=== PATIENT | male | born 1965 | race Caucasian/White ===

== ENCOUNTER 2022-10-20 09:00 | Outpatient (OUT) | payer OTHER, SELFPAY ==
--- NOTE | 2022-10-20 09:31 | P.HP_ITS ---
Consult Note: HPI Data of Consult Patient: known to practice within the last 3 years Consult date: 10/20/22 Requesting Physician: ALBINA MAYER NP Primary Care Provider: Corry Fan MD Family Provider: DMNANDINI Consult Narrative Reason for consult: right hip, back pain Narrative: Fadi is here for f/u of right LCIH NB done 09/26/22. He received 100% relief of pain and increased fx for several hours after procedure. He would like to proceed with RFA of same area. No new sensorimotor or bowel or bladder issues. Pain in right SI area. He does receive intensive care ambulance paramedic. He has failed conservative management. No medication SE. We discussed RFA procedure in detail and he would like to proceed. cc:: CC: ALBINA MAYER NP Review of Systems ROS Status of ROS 10 or more systems reviewed and unremarkable except as noted in history and below Musculoskeletal Reports: back pain Meds Home Medications and Allergies Home Medications Medication Instructions Recorded Confirmed Type alprazolam 1 mg tablet (Xanax) 1 mg PO BID 10/20/22 10/20/22 History aspirin 81 mg tablet,delayed 81 mg PO QDAY 10/20/22 10/20/22 History release (Adult Low Dose Aspirin) cyclobenzaprine 10 mg tablet 10 mg PO QPM 10/20/22 10/20/22 History diclofenac sodium 75 mg 75 mg PO BID 10/20/22 10/20/22 History tablet,delayed release montelukast 10 mg tablet 10 mg PO QDAY 10/20/22 10/20/22 History rosuvastatin 5 mg tablet 5 mg PO QDAY 10/20/22 10/20/22 History tadalafil 20 mg tablet 20 mg PO QDAY 10/20/22 10/20/22 History Allergies Allergy/AdvReac Type Severity Reaction Status Date / Time No Known Drug Allergies Allergy Verified 10/20/22 09:12 Exam Constitutional: Common normals: no apparent distress, average body habitus, oriented x3, no limitations, healthy appearing, alert and well nourished General appearance: cooperative, comfortable and well developed Orientation/consciousness: Yes awake, Yes oriented to person, Yes oriented to place and Yes oriented to time Respiratory: Common normals: normal respiratory effort, no retractions and no use of accessory muscles Effort & inspection: able to speak in complete sentences Back & Pelvis: Lumbar spine/lower back: normal to inspection, lumbar ROM normal, pain with ROM, paraspinal muscle tenderness and straight leg raise negative bilaterally Sacroiliac joints: SI joint(s) abnormal SI joint details: tender to palpation and pain elicited by passive hyperextension of lower extremity Extremity: Common normals: normal to inspection, full ROM, normal capillary refill and no pedal edema Other: muscle strength 5/5 bilat LE with intact sensation positive gaenslens, positive janna right, positive thigh thrust Skin: Common normals: no rashes or lesions noted, no wounds, skin turgor normal, no jaundice, no petechiae and no mottling Assessment and Plan Assessment and Plan (1) Neuritis: (2) Muscle spasm: Plan schedule for thermal RFA right LCIH without sedation
== END 2022-10-20 09:01 ==
PROVIDERS: PCP Anesthesiology; Visit Provider Nurse Practitioner
DX: M79.2 Neuralgia and neuritis, unspecified (principal); M62.838 Other muscle spasm
CPT/HCPCS: G0463

== ENCOUNTER 2022-12-05 07:23 | Day surgery (SDC) | payer OTHER, SELFPAY ==
[2022-12-05 08:13] VITALS: BP 117/77; PULSE 57; RESP 16; TEMP 36.9; O2SAT 100
[2022-12-05 08:47] VITALS: BP 145/67; PULSE 64; RESP 20; O2SAT 97
[2022-12-05] MEDS: BUPIVACAINE HCL 0.25% PF 25 MG/10 ML VIAL 4 ML INJ (08:51)
[2022-12-05] MEDS: LIDOCAINE HCL 2% 400 MG/20 ML MDV 15 ML INJ (08:51)
[2022-12-05] MEDS: METHYLPREDNISOLONE ACETATE 40 MG/ML VIAL INJ (08:52)
[2022-12-05 08:53] VITALS: BP 142/76; PULSE 63; RESP 20; O2SAT 98
--- NOTE | 2022-12-05 10:04 | W.PM.PROCNOT ---
Date of procedure: 12/05/22 Pre-op diagnosis: Right LCIH Neuritis Post-op diagnosis: same Procedure: Right Lateral cutaneous iliohypogastric nerve Radiofrequency ablation Under fluoroscopic guidance Rhizotomy was created using radio frequency ablation at 80?C for 90 seconds 1 to 2 lesions created at each site. Post lesioning injection of 2 mL each of 0.25% Marcaine and 2% lidocaine with Depo-Medrol 40mg. 0.5 to 1 mL injected at each site Anesthesia local 2% lidocaine Timeout process compliant After informed consent obtained. Patient brought to the procedure room placed in the prone position skin overlying the area was prepped and draped in a sterile fashion using betadine. 25 gauge needle was used to create a skin wheal over each of the targeted areas utilizing 2% lidocaine. A rhizotomy needle with a 10 mm active tip was inserted over each of the anesthetized areas and directed towards four different areas in the distribution of the lateral cutaneous branches of the iliohypogastric nerve, accomplished under fluoroscopic guidance. After encountering the same we had positive sensory stimulation, negative motor stimulation was noted. lesions were then created. Post lesioning, steroid solution was injected needles removed. Patient was transferred to recovery room in stable condition to be discharged home after meeting criteria. Surgeon: Archana Beckwith
== END 2022-12-05 09:05 | disposition home or self-care (01) ==
LOC: SURGOUT 07:23
PROVIDERS: PCP Anesthesiology; Visit Provider Anesthesiology Pain Medicine
DX: G57.81 Other specified mononeuropathies of right lower limb (principal)
CPT/HCPCS: 64640; 77002; J1030

== ENCOUNTER 2023-03-01 07:52 | Outpatient (OUT) | payer OTHER, SELFPAY ==
--- NOTE | 2023-03-01 08:14 | P.CN_ITS ---
Consult Note: HPI Data of Consult Patient: known to practice within the last 3 years Requesting Physician: Surekha Jeffries NP Primary Care Provider: Corry Fan MD Family Provider: CATHERINE Consult Narrative Reason for consult: F/u Narrative: Fadi Garcia a 57 year old male presents for evaluation of chronic low back pain. Patient recently had a right LCIH RFA with 100% pain relief and functional improvement in right buttock for 8 weeks. Patient has noticed over the past few weeks an increase in pain and numbness tingling sharp shooting pain down right leg extending to foot. Patient would like to discuss this pain today. Today rating pain 1/10. Patient walks between 30-50k steps a day and is very active with his job. Pain is increased with standing and walking, decreased with inversion and stretching. Diclofenac is not beneficial for this pain, flexeril mildly beneficial. cc:: CC: Surekha Jeffries NP Review of Systems ROS Status of ROS 10 or more systems reviewed and unremarkable except as noted in history and below Musculoskeletal Reports: back pain PFSH PFSH Medical History (Updated 03/01/23 @ 08:45 by Surekha Jeffries NP) High cholesterol ?E78.00 - Pure hypercholesterolemia, unspecified (ICD-10) Meds Home Medications and Allergies Home Medications Medication Instructions Recorded Confirmed Type alprazolam 1 mg tablet (Xanax) 1 mg PO BID 10/20/22 12/05/22 History aspirin 81 mg tablet,delayed 81 mg PO QDAY 10/20/22 12/05/22 History release (Adult Low Dose Aspirin) cyclobenzaprine 10 mg tablet 10 mg PO QPM 10/20/22 12/05/22 History diclofenac sodium 75 mg 75 mg PO BID 10/20/22 12/05/22 History tablet,delayed release montelukast 10 mg tablet 10 mg PO QDAY 10/20/22 12/05/22 History rosuvastatin 5 mg tablet 5 mg PO QDAY 10/20/22 12/05/22 History tadalafil 20 mg tablet 20 mg PO QDAY 10/20/22 12/05/22 History Allergies Allergy/AdvReac Type Severity Reaction Status Date / Time No Known Drug Allergies Allergy Verified 12/05/22 08:11 Exam Constitutional Documenting provider has reviewed patient's vital signs: yes Common normals: no apparent distress, oriented x3, healthy appearing, alert and well nourished General appearance: cooperative HENMT Common normals: normocephalic, hearing grossly normal bilaterally and moist oral mucous membranes Head and scalp: normocephalic Eye Common normals: PERRL Pupil: PERRL Neck & C-Spine Common normals: full ROM General: normal visual inspection Chest Common normals: inspection of chest normal Respiratory Common normals: normal respiratory effort, no retractions and no use of accessory muscles Back & Pelvis Lumbar spine/lower back: lumbar ROM normal, pain with ROM and straight leg raise positive right Sacroiliac joints: SI joints normal Other: negative janna, gaenslens, thigh thrust postive right straight leg raise pain following L5-S1 dermatomal pattern. Neuro Common normals: oriented x3, CN's II-XII intact bilaterally, moves all extremities, no focal motor deficits, no sensory deficits noted and deep tendon reflexes 2+ bilaterally Sensorium/orientation: alert Motor exam: strength 5/5 throughout and no movement abnormalities noted Psych Common normals: mental status grossly normal, thought process normal, cooperative, affect normal, speech normal and activity/motor behavior normal Speech: normal speech Thought process: normal thought process Results Additional Findings Additional findings: I have checked an [place] report on this patient today and there are no aberrancies noted in the prescribing history.?? A drug screen was completed and reviewed within the last year, and if there has not been a drug screen completed we ordered one today to monitor higher risk, state monitored pain medication use. As part of providing excellent, safe, comprehensive care, the following was completed at our patient's visit: 1. A medication reconciliation and review to ensure accurate knowledge of current/active medications, including asking our patients to inform us about any [id number] medications or herbal remedies/nutritional s upplements/alternative remedies. 2. A review to specifically ensure our patients have had annual screening for: elevated body mass index (BMI), tobacco use, screening for depression, and screening for unhealthy alcohol use. When screening is concerning, patients are provided with education and the specific recommendation to discuss the concerning health issue and treatment options with their primary care provider. Assessment and Plan Assessment and Plan (1) Lumbar radiculopathy: Assessment and Plan: The patient has had over 3 months of moderate to severe low back pain with functional impairment and inadequate response to conservative care including NSAIDS (unless there are contraindication such as concurrent blood thinners), multiple oral or topical pain medications, and home exercise program/physical therapy.? Patient has completed >6 weeks of guided home exercise program and/or formal physical therapy program without relief of their symptoms.? I have reviewed the imaging of the lumbar spine and no red flags were identified.? The imaging reveals radiographic findings consistent with lumbar radiculopathy The Oswestry Disability Index was completed, and the patient scored a 12% We discussed the risks and benefits of the procedure with the patient, and we ar e NOT planning on using sedation as outlined in the guidelines from Medicare unless there is a documented reason that sedation would be strongly recommended.?? The procedure will be completed with fluoroscopic guidance.? (2) Lumbar degenerative disc disease: Assessment and Plan: Moderate degenerative disc space narrowing at L1-2 and prominent disc space narrowing at L5-S1 per xray report 07/18/22 (3) Muscle spasm: (4) Neuritis: Plan stop diclofenac start mobic 7.5mg BID with food Lumbar TELLO under fluoroscopy continue HEP encouraged stretches and exercises for sciatic nerve irritation. has a sciatic brace that has been mildly beneficial.
== END 2023-03-01 07:53 | disposition home or self-care (01) ==
LOC: PM 07:53
PROVIDERS: PCP Anesthesiology; Visit Provider Nurse Practitioner
DX: M51.16 Intervertebral disc disorders with radiculopathy, lumbar region (principal); M62.838 Other muscle spasm; M79.2 Neuralgia and neuritis, unspecified
CPT/HCPCS: G0463

== ENCOUNTER 2023-04-10 07:38 | Day surgery (SDC) | payer OTHER, SELFPAY ==
[2023-04-10 08:52] VITALS: BP 145/82; PULSE 64; RESP 16; TEMP 36.6; O2SAT 98
[2023-04-10 09:56] VITALS: BP 138/75; PULSE 64; RESP 18; O2SAT 96
[2023-04-10] MEDS: METHYLPREDNISOLONE ACETATE 80 MG/ML VIAL INJ (09:56)
[2023-04-10] MEDS: IOHEXOL 240 MG/ML - 10 ML VIAL INJ (09:56)
[2023-04-10] MEDS: 0.9 % SODIUM CHLORIDE 10 ML SYRINGE - SALINE FLUSH 2 ML INJ (09:56)
[2023-04-10] MEDS: LIDOCAINE HCL 2% PF 100 MG/5 ML VIAL 3 ML INJ (09:56)
[2023-04-10] MEDS: BUPIVACAINE HCL 0.25% PF 25 MG/10 ML VIAL 2 ML INJ (09:56)
[2023-04-10 09:58] VITALS: BP 136/76; PULSE 65; RESP 19; O2SAT 97
--- NOTE | 2023-04-10 10:08 | P.ON_ITS ---
Date of procedure: 04/10/23 Pre-op diagnosis: Lumbar Radiculopathy Post-op diagnosis: same as pre-op Procedure: Lumbar 5/sacral 1 Epidural Steroid Injection Under fluoroscopic guidance Immediate complications none Solution used for injection: Marcaine 0.25% 2mL, 2cc Normal saline, Depo-Medrol 80mg Omnipaque 3 mL Anesthesia local 2% lidocaine up to 4ml Timeout process compliant After informed consent obtained. Patient brought to the procedure room placed in the prone position. Skin overlying the area was prepped and draped in a sterile fashion using betadine. 25 gauge needle used to raise a skin wheel with local anesthetic over the target area identified under fluoroscopy. A 17 gauge Touhy needle Was inserted over the anesthetized area and directed towards the inter- space under fluoroscopic guidance. Epidural space was identified with loss of resistance technique to air. Needle Tip placement confirmed with injection of contrast solution. Steroid solution was then injected. Anesthesia: Local Surgeon: Archana Beckwith Condition: stable
== END 2023-04-10 10:05 | disposition home or self-care (01) ==
LOC: SURGOUT 07:39
PROVIDERS: Visit Provider Anesthesiology Pain Medicine
DX: M54.16 Radiculopathy, lumbar region (principal)
CPT/HCPCS: 62323; J1040; Q9966

== ENCOUNTER 2023-05-31 12:31 | Outpatient (OUT) | payer OTHER, SELFPAY ==
--- OUTSIDE RECORDS SUMMARY | 2023-05-31 12:34 | XMS_ITS | CCD ---
Author Name Unknown Address [address] [place] [address] Organization [facility] Care Team Providers Care Marriage Therapist Name Role Phone Tra Rosado MD Primary Care Provider [phone] TRA ROSADO Primary Care Unavailable TRA ROSADO Referring Unavailable TRA ROSADO Primary Care Unavailable TRA ROSADO Referring Unavailable TRA ROSADO Primary Care Unavailable TRA ROSADO Referring Unavailable TRA ROSADO Primary Care Unavailable TRA ROSADO Referring Unavailable LAKSHMIPATHY ., LINA Attending Viktoriya vailable LAKSHMIPATHY ., LINA Admitting Viktoriya vailable MISC, DR ALEX Primary Care Unavailable MISC, DR ALEX Consulting Unavailable LAKSHMIPATHY ., LINA Consulting Viktoriya vailable LAKSHMIPATHY ., LINA Admitting Viktoriya vailable LAKSHMIPATHY ., LINA Consulting Viktoriya vailable LAKSHMIPATHY ., LINA Attending Viktoriya vailable ASHLEYC, DR ALEX Primary Care Unavailable LAKSHMIPATHY ., LINA Admitting Viktoriya vailable LAKSHMIPATHY ., LINA Attending Viktoriya vailable MISC, DR ALEX Primary Care Unavailable MISC, DR ALEX Consulting Unavailable Medications Current Medications Medication Drug Class(es) Dates Sig (Normalized) Sig (Original) atorvastatin 10 mg oral tablet (2 sources) HMG-CoA Reductase Inhibitor Start: 9 take 1 tablet by mouth once daily atorvastatin (LIPITOR) 10 MG tablet Indications: Pure hypercholesterolemia Take 1 tablet by mouth daily 30 tablet 11 09/27/2018 Active cyclobenzaprine hydrochloride 10 mg oral tablet (2 sources) Muscle Relaxant Start: 2 take 1 tablet by mouth once daily as needed for muscle spasms cyclobenzaprine (FLEXERIL) 10 MG tablet Indications: Chronic low back pain with sciatica, sciatica laterality unspecified, unspecified back pain laterality Take 1 tablet by mouth daily as needed for Muscle spasms 30 tablet 5 04/05/2022 Active fluticasone propionate 0.05 mg/actuat metered dose nasal spray (2 sources) Corticosteroid Start: 3 fluticasone (FLONASE) 50 MCG/ACT nasal spray Indications: Vasomotor rhinitis SPRAY 2 SPRAYS BY NASAL ROUTE DAILY NEEDED FOR RHINITIS. 1 each 5 06/21/2022 Active ibuprofen 800 mg oral tablet (2 sources) Nonsteroidal Anti-inflammatory Drug Start: 2 take 1 tablet by mouth twice daily as needed for pain ibuprofen (ADVIL;MOTRIN) 800 MG tablet Indications: Chronic low back pain with sciatica, sciatica laterality unspecified, unspecified back pain laterality Take 1 tablet by mouth 2 times daily as needed for Pain 60 tablet 5 04/05/2022 Active ipratropium bromide 0.042 mg/actuat metered dose nasal spray (2 sources) Anticholinergic Start: 2 take 2 spray(s) nasal route three times daily as needed for rhinitis ipratropium (ATROVENT) 0.06 % nasal spray Indications: Vasomotor rhinitis 2 sprays by Each Nostril route 3 times daily as needed for Rhinitis 15 mL 5 04/05/2022 Active 24 hr nicotine 0.875 mg/hr transdermal system (6 sources) Cholinergic Nicotinic Agonist Start: 2 End: 3 apply 1 dose transdermal route every twenty-four hours nicotine (NICODERM CQ) 14 MG/24HR Indications: Smoker Place 1 patch onto the skin every 24 hours 30 patch 0 04/05/2022 04/05/2023 Active Start: 04-05-2022 End: 04-05-2023 apply 1 dose transdermal route every twenty-four hours nicotine (NICODERM CQ) 21 MG/24HR Indications: Smoker Place 1 patch onto the skin every 24 hours 30 patch 0 04/05/2022 04/05/2023 Active Start: 04-05-2022 End: 04-05-2023 nicotine (NICODERM CQ) 7 MG/ 24HR Indications: Smoker Place 1 patch onto the skin every 24 hours 30 patch 0 04/05/2022 04/05/2023 Active sildenafil 100 mg oral tablet (2 sources) Phosphodiesterase 5 Inhibitor Start: 04-05-2022 End: 04-05-2023 sildenafil (VIAGRA) 100 MG tablet Indications: Other male erectile dysfunction Take 1 tablet by mouth as needed for Erectile Dysfunction 10 tablet 5 04/05/2022 04/05/2023 Active tadalafil 20 mg oral tablet (2 sources) Phosphodiesterase 5 Inhibitor Start: 06-19-2022 tadalafil (CIALIS) 20 MG tablet Indications: Other male erectile dysfunction Take 1 tablet by mouth as needed for Erectile Dysfunction 10 tablet 5 06/19/2022 Active Problems Active Problems Problem Classification Problem Date Documented Date Episodic/Chronic Chronic obstructive pulmonary disease and bronchiectasis (2 sources) Chronic obstructive lung disease; Translations: [Chronic obstructive pulmonary disease, unspecified] Onset: 09-30-2012 09-30-2012 Chronic Nutritional deficiencies (2 sources) Vitamin D deficiency; Translations: [Vitamin D deficiency, unspecified] Onset: 09-30-2012 09-30-2012 Chronic Other connective tissue disease (1 source) Pain of bilateral hands; Translations: [Pain in right hand] Episodic Other connective tissue disease (3 sources) Pain in right hand; Translations: [Pain in right hand] Onset: 07-18-2022 Episodic Other connective tissue disease (3 sources) Pain in left hand; Translations: [Pain in left hand] Onset: 07-18-2022 Episodic Other nervous system disorders (4 sources) Other chronic pain; Translations: [Other chronic pain] Onset: 07-18-2022 Chronic Other nervous system disorders (4 sources) Other specified mononeuropathies of right lower limb; Translations: [OTH SPEC MONONEUROPATH RT LOW LIMB] Onset: 09-26-2022 Chronic Other nervous system disorders (1 source) Other specified mononeuropathies; Translations: [OTHER SPECIFIED MONONEUROPATHIES] Onset: 2022 Chronic Other non-traumatic joint disorders (4 sources) Pain in right hip; Translations: [PAIN IN RIGHT HIP] Onset: 09-14-2022 Episodic Spondylosis; intervertebral disc disorders; other back problems (4 sources) Chronic low back pain; Translations: [Lumbago with sciatica, unspecified side] Onset: 07-18-2022 Episodic Substance-related disorders (2 sources) Tobacco user; Translations: [Nicotine dependence, unspecified, uncomplicated] Onset: 09-30-2012 10-03-2012 Chronic Past or Other Problems Problem Classification Problem Date Documented Da te Episodic/Chronic Other non-traumatic joint disorders (2 sources) Shoulder pain; Translations: [Pain in unspecified shoulder] Onset: 09-30-2012 09-30-2012 Episodic Results Test Name Value Interpretation Reference Range Facility XR HAND LEFT (MIN 3 VIEWS)on 07-18-2022 XR HAND LEFT (MIN 3 VIEWS) EXAM: XR HAND LEFT (MIN 3 VIEWS), XR HAND RIGHT (MIN 3 VIEWS) HISTORY: Bilateral hand pain COMPARISON: None. IMPRESSION: FINDINGS/IMPRESSION: 1. Mild bilateral interphalangeal joint space narrowing normal for age. 2. Negative for erosive arthritic changes or fracture. 3. Wrist normal for age. Interpreted by: Finesse Ventura Jr., MD Signed by: Finesse Ventura Jr., MD 07/18/22 Final result Normal [facility] FINDINGS/IMPRESSION: 1. Mild bilateral interphalangeal joint space narrowing normal for age. 2. Negative for erosive arthritic changes or fracture. 3. Wrist normal for age. [facility] EXAM: XR HAND LEFT (MIN 3 VIEWS), XR HAND RIGHT (MIN 3 VIEWS) HISTORY: Bilateral hand pain COMPARISON: None. [facility] Finesse Ventura Jr., MD - 07/18/2022 EXAM: XR HAND LEFT (MIN 3 VIEWS), XR HAND RIGHT (MIN 3 VIEWS) HISTORY: Bilateral hand pain COMPARISON: None. IMPRESSION: FINDINGS/IMPRESSION: 1. Mild bilateral interphalangeal joint space narrowing normal for age. 2. Negative for erosive arthritic changes or fracture. 3. Wrist normal for age. [employer] Phone: Radiology Study observation (narrative) [employer] Phone: XR HAND LEFT (MIN 3 VIEWS)Or dered By: Finesse Ventura on 07-18-2022 [employer] Phone: XR HAND RIGHT (MIN 3 VIEWS)o n 07-18-2022 XR HAND RIGHT (MIN 3 VIEWS) EXAM: XR HAND LEFT (MIN 3 VIEWS), XR HAND RIGHT (MIN 3 VIEWS) HISTORY: Bilateral hand pain COMPARISON: None. IMPRESSION: FINDINGS/IMPRESSION: 1. Mild bilateral interphalangeal joint space narrowing normal for age. 2. Negative for erosive arthritic changes or fracture. 3. Wrist normal for age. Interpreted by: Finesse Ventura Jr., MD Signed by: Finesse Ventura Jr., MD 07/18/22 Final result Normal [facility] XR LUMBAR SPINE (MIN 4 VIEWS )on 07-18-2022 XR LUMBAR SPINE (MIN 4 VIEWS) EXAM: XR LUMBAR SPINE (MIN 4 VIEWS) HISTORY: Chronic low back pain with sciatica, sciatica laterality unspecified, unspecified back pain laterality. COMPARISON: None. IMPRESSION: FINDINGS/IMPRESSION: 1. Mild convex right thoracolumbar curve 11 degrees T11 through L4. 2. Moderate degenerative disc space narrowing L1-L2 and prominent disc space narrowing L5-S1. 3. No acute changes. Interpreted by: Finesse Ventura Jr., MD Signed by: Finesse Ventura Jr., MD 07/18/22 Final result Normal [facility] FINDINGS/IMPRESSION: 1. Mild convex right thoracolumbar curve 11 degrees T11 through L4. 2. Moderate degenerative disc space narrowing L1-L2 and prominent disc space narrowing L5-S1. 3. No acute changes. [facility] EXAM: XR LUMBAR SPIN E (MIN 4 VIEWS) HISTORY: Chronic low back pain with sciatica, sciatica laterality unspecified, unspecified back pain laterality. COMPARISON: None. [facility] Finesse Ventura Jr., MD - 07/18/2022 EXAM: XR LUMBAR SPINE (MIN 4 VIEWS) HISTORY: Chronic low back pain with sciatica, sciatica laterality unspecified, unspecified back pain laterality. COMPARISON: None. IMPRESSION: FINDINGS/IMPRESSION: 1. Mild convex right thoracolumbar curve 11 degrees T11 through L4. 2. Moderate degenerative disc space narrowing L1-L2 and prominent disc space narrowing L5-S1. 3. No acute changes. [employer] Phone: Radiology Study observation (narrative) [employer] Phone: XR LUMBAR SPINE (MIN 4 VIEWS )Ordered By: Finesse Ventura on 07-18-2022 [facility]: CBC With Platelet and Differ entialon 06-27-2017 Basophils Auto #/vol (Bld) 0.1 10*3/uL Normal 0.0-0.2 [facility] Basophils/100 WBC Auto (Bld) 0.7 % Normal [facility] Eosinophils 0.1 10*3/uL Normal 0.0-0.7 [facility] Eosinophils/100 leukocytes 1.7 % Normal [facility] Erythrocyte distribution width Auto Ratio (RBC) 12.6 % Normal 11.5-14.5 [facility] Erythrocytes (RBC) 5.28 10*6/uL Normal 4.70-6.10 [facility] Hematocrit (HCT) 50.6 % Normal 42.0-52.0 [facility] Hemoglobin mass conc (Bld) 17.3 g/dL Normal 14.0-18.0 [facility] Lymphocytes 1.8 10*3/uL Normal 1.0-4.8 [facility] Lymphocytes/100 leukocytes 23.9 % Normal [facility] MCH 32.8 pg Critically high 27.0-31.3 [facility] MCHC mass conc (RBC) 34.2 % Normal 33.0-37.0 [facility] MCV 95.9 fL Normal 80.0-100.0 [facility] Monocytes 0.4 10*3/uL Normal 0.2-0.8 [facility] Monocytes/100 leukocytes 5.8 % Normal [facility] Neutrophils 5.3 10*3/uL Normal 1.4-6.5 [facility] Neutrophils/100 leukocytes 67.9 % Normal [facility] Platelets 192 10*3/uL Normal 130-400 [facility] WBC (Leukocytes) 7.7 10*3/uL Normal 4.8-10.8 [facility] Comprehensive Metabolic Pane viri 06-27-2017 Alanine aminotransferase (ALT) 23 U/L Normal 0-41 [facility] Albumin 4.7 g/dL Normal 3.9-4.9 [facility] Alkaline phosphatase (ALP) 69 U/L Normal 35-104 [facility] Anion gap 17 mmol/L Critically high 7-13 [facility] Aspartate aminotransferase (AST) 20 U/L Normal 0-40 [facility] Bilirubin (total) 0.6 mg/dL Normal 0.0-1.2 [facility] Calcium 9.0 mg/dL Normal 8.6-10.2 [facility] Chloride 102 mmol/L Normal 98-107 [facility] CO2 23 mmol/L Normal 22-29 [facility] Creatinine 0.63 mg/dL Low 0.70-1.20 [facility] eGFR (black) mL/min/{1.73_m2} Normal >60 [facility] Comment on above: Result Comment: >60 mL/min/1.73m2 EGFR, calc. for ages 18 and older using theMDRD formula (not corrected for weight), is valid for stablerenal function. eGFR (MDRD) mL/min/{1.73_m2} Normal >60 [facility] Comment on above: Result Comment: >60 mL/min/1.73m2 EGFR, calc. for ages 18 and older using theMDRD formula (not corrected for weight), is valid for stablerenal function. Globulin 2.3 g/dL Normal 2.3-3.5 [facility] Glucose mass conc 92 mg/dL Normal 74-109 [facility] Potassium molar conc 4.3 mmol/L Normal 3.5-5.1 [facility] Protein 7.0 g/dL Normal 6.4-8.1 [facility] Sodium 142 mmol/L Normal 132-144 [facility] Urea nitrogen 11 mg/dL Normal 6-20 [facility] Hepatitis C Antibodyon 06-27 Hepatitis C Antibody Interp Non-reactive Normal [facility] Lipid Panelon 06-27-2017 Cholesterol 217 mg/dL Critically high 0-199 [facility] Comment on above: Result Comment: ATP III Cholesterol Classification is Borderline High. HDL Cholesterol 44 mg/dL Normal 40-59 [facility] Comment on above: Result Comment: ATP III HDL Cholesterol Classification is Desirable.Expected Values:Males: >55 = No Risk 35-55 = Moderate Risk <35 = High RiskFemales: >65 = No Risk 45-65 = Moderate Risk <45 = High RiskNCEP Guidelines: Third Report September 2000>59 = negative risk factor for CHD<40 = major risk factor for CHD LDL Cholesterol 151 mg/dL Critically high 0-129 [facility] Comment on above: Result Comment: ATT III Classification is Borderline High. Triglyceride 108 mg/dL Normal 0-200 [facility] Comment on above: Result Comment: ATP III Triglycerides Classification is Normal. Prostate Specific Ag Screeno n 06-27-2017 Prostate Specific Ag Screen 0.59 ng/mL Normal 0.00-3.89 [facility] Comment on above: Result Comment: When the Total PSA is between 3.00 and 10.00 ng/mL, considerrequesting a Free PSA to aid in diagnosis. Encounters Encounter Date Encounter Type Care Provider Facility Start: 10-20-2022 ambulatory NARENDRANATH LAKSHMIPATHY . Facility: Start: 09-26-2022 End: 09-26-2022 ambulatory NARENDRANATH LAKSHMIPATHY . Facility: Start: 09-14-2022 End: 09-15-2022 ambulatory NARENDRANATH LAKSHMIPATHY . Facility: Start: 07-18-2022 End: 07-21-2022 ambulatory TRA ROSADO [facility] Start: 07-18-2022 End: 07-20-2022 Subsequent hospital visit by physician Amber Hebert Rad 1 [facility] Comment on above: Bilateral hand pain Chronic low back joseph n with sciatica, sciatica laterality unspecified, unspecified back pain laterality Procedures Date Procedure Procedure Detail Performing Clinician Start: 07-18-2022 End: 07-18-2022 Radex hand minimum 3 views Tra Rosado MD Work Phone: Plan of Treatment Date Care Activity Detail Author Start: 10-22-2023 DTaP/Tdap/Td vaccine (2 - Td or Tdap) DTaP/Tdap/Td vaccine (2 - Td or Tdap) [facility] Start: 04-05-2023 Depression Screen Depression Screen [facility] Start: 04-05-2023 Influenza vaccination Flu vaccine (# 1) [facility] Comment on above: Postponed from 12/19 (Patient Refused) Start: 04-05-2023 Lipid panel Lipids [facility] Start: 2009 Screening for malign ant neoplasm of colon [facility] Start: 03-19-1965 COVID-19 Vaccine (#1) COVID-19 Vacci ne (#1) [facility] Immunizations Immunization Date Immunization Notes Care Provider Manny vallejo 04-12-2022 zoster vaccine recombinant [facility] 1 [facility] 04-05-2022 Pneumococcal conjuga te PCV20, PF (Prevnar 20) [facility] 1 [facility] Work Phone: 06-27-2017 pneumococcal conjuga te vaccine, 13 valent [facility] 1 [facility] Work Phone: 04-17-2016 pneumococcal polysac charide vaccine, [address] 10-21-2013 tetanus toxoid, redu kyle diphtheria toxoid, and acellular pertussis vaccine, adsorbed [facility] 1 [facility] Work Phone: 01-04-2010 Td, unspecified formulation [facility] 1 [facility] Work Phone: 01-04-2010 tetanus and diphther ia toxoids, adsorbed, preservative free, for adult use (5 Lf of tetanus toxoid and 2 Lf of diphtheria toxoid) [facility] 1 [facility] Payers Date Payer Category Payer [employer] ( and others) [id number] 1965 Unknown [id number] 1964 Unknown [id number] 1964 Unknown [id number] 1964 Unknown [id number] 1964 Unknown [id number] 1964 Unknown [id number] 1964 Unknown [id number] 1959 [employer] ( and others) [id number] 1960 [employer] ( and others) [id number] 1960 Private Health Insurance [id number] 1.315 Social History Date Type Detail Facility Start: 04-05-2022 Tobacco smoking stat [facility] Ex-smoker [employer] Phone: Start: 05-21-1982 History of tobacco use Current smoke r [employer] Phone: Start: 05-21-1982 History of tobacco use Cigarette Smo ker [employer] Phone: Start: 04-05-2022 Cigarettes smoked current (pack per day) - Reported 0.3 [employer] Phone: Start: 04-05-2022 Tobacco use and exposure Smoke less tobacco non-user [employer] Phone: Start: 04-05-2022 Alcohol intake Current drinke r of alcohol (finding) [employer] Phone: Start: 04-05-2022 History SDOH Financial 5 [employer] Phone: Start: 04-05-2022 History SDOH Food Worry 1 [employer] Phone: Start: 04-08-2013 Alcohol Comment rare [employer] [facility] Phone: Start: 1965 Sex Assigned At Not on file B ON [employer] Phone: Consultation note 09-14-2022 Note Date & Type Note Facility 09-14-2022 Note CONSULTATION CONSULTATION DATE: 09/14/2022 TO: Tra Rosado M.D. CHIEF COMPLAINT: Right sided hip pain. HISTORY OF PRESENT ILLNESS: Review of systems, past medical/surgical history were obtained and documented on the health questionnaire and is available upon request. He has had at least 20 year history of pain in the above mentioned areas. It appears at times it alters his quality of life, level of functioning and his sleep pattern. He describes the pain as being 5-7/10 pain, shooting type of pain with a sharp component and a burning component. It increases with activities such as standing, walking and performing transitioning maneuvers. He also reports light touch to the area is quite uncomfortable. He feels most comfortable in the semi-recumbent position. He denies any change in bowel and bladder habits or new sensorimotor changes in the lower extremities EXAM: Notable for patient having no clinical radiculopathy or myelopathy involving his lower extremities on today's visit. He has dysesthesia and hyperesthesia overlying the distribution of the lateral cutaneous branch of the iliohypogastric nerve on the right side, and severe myofascial spasm of the right gluteus medius muscle. 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 RECOMMENDATIONS: I recommend proceeding with a diagnostic right sided lateral cutaneous branch of the iliohypogastric nerve injection under fluoroscopic guidance. I have recommended no further medication for the patient, as he would like to avoid medicines if at all possible. He currently uses diclofenac 75 mg b.i.d. He reports, for the last two months, he has had no improvement with this medication, and has been moderately responsive to the use of Flexeril 10 mg b.i.d. His DORITA on today's visit was 9. As part of providing excellent, safe, comprehensive care, the following was completed at our patient's visit: 1. A medication reconciliation and review to ensure accurate knowledge of current/active medications, including asking our patients to inform us about any [id number] medications or herbal remedies/nutritional supplements/alternative remedies. 2. A review to specifically ensure our patients have had annual screening for: elevated body mass index (BMI, see intake chart for exact total), tobacco use, screening for depression, and screening for unhealthy alcohol use. When screening is concerning, patients are provided with education and the specific recommendation to discuss the concerning health issue and treatment options with their primary care provider. [facility] Evaluation note Note Date & Type Note Facility Evaluation note Diagnosis Bilateral hand pain Pain in limb documented in this encounter [facility] [employer] Phone: Evaluation note Note Date & Type Note Facility Evaluation note Diagnosis Chronic low back pain with sciatica, sciatica laterality unspecified, unspecified back pain laterality documented in this encounter [facility] [employer] Phone: Summary Purpose Family History No Family History Records FoundNo Family History Records FoundNo Family History Records Found Advance Directives No Advanced Directives Records FoundNo Advanced Directives Records FoundNo Advanced Directives Records Found Additional Source Comments (unrecognized sect ion and content) No Status Records FoundNo Status Records FoundNo Status Records Found INFORMATION SOURCE (unrecogn ized section and content) DATE CREATED AUTHOR 11/12/2017 [facility] DATE CREATED AUTHOR AUTHOR'S ORGANIZ ATION 07/21/2022 [facility] DATE CREATED AUTHOR AUTHOR'S ORGANIZ ATION 10/27/2022 [facility] Teams (unrecognized sec tion and content) Marriage Therapist Relationship Specialty Start Date End Date Tra Rosado MD PCP - General Internal Medicine 06/24/11 FOR RECORDS PERTAINING TO PATIENTS WHO ARE OR HAVE BEEN ENROLLED IN A CHEMICAL DEPENDENCY/SUBSTANCEABUSE PROGRAM, SOME INFORMATION MAY BE OMITTED. This clinical summary was aggregated from multiple sources. Caution should be exercised in using it in the provision of clinical care. This summary normalizes information from multiple sources, and as a consequence, information in this document may materially change the coding, format and clinical context of patient data. In addition, data may be omitted in some cases. CLINICAL DECISIONS SHOULD BE BASED ON THE PRIMARY CLINICAL RECORDS. [employer] [facility]. provides no warranty or guarantee of the accuracy or completeness of information in this document.
--- NOTE | 2023-05-31 12:37 | P.CN_ITS ---
Consult Note: HPI Data of Consult Patient: known to practice within the last 3 years Consult date: 05/31/23 Requesting Physician: Surekha Jeffries NP Primary Care Provider: Non-Staff Physician, Family Provider: CATHERINE Consult Narrative Reason for consult: F/u Narrative: Fadi Garcia a 57 year old male presents for evaluation of chronic low back pain. Patient recently had a Lumbar 5/sacral 1 Epidural Steroid Injection with 100% improvement for 7 weeks now 70% ongoing relief. 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 No numbness tingling weakness at this time cc:: CC: Surekha Jeffries NP Review of Systems ROS Status of ROS 10 or more systems reviewed and unremark able except as noted in history and below Musculoskeletal Reports: back pain [facility] Medical History (Updated 03/01/23 @ 08:45 by Surekha Jeffries NP) High cholesterol ?E78.00 - Pure hypercholesterolemia, unspecified (ICD-10) Meds Home Medications and Allergies Home Medications Medication Instructions Recorded Confirmed Type alprazolam 1 mg tablet (Xanax) 1 mg PO BID 10/20/22 04/10/23 History aspirin 81 mg tablet,delayed 81 mg PO QDAY 10/20/22 04/10/23 History release (Adult Low Dose Aspirin) cyclobenzaprine 10 mg tablet 10 mg PO QPM 10/20/22 04/10/23 History diclofenac sodium 75 mg 75 mg PO BID 10/20/22 04/10/23 History tablet,delayed release montelukast 10 mg tablet 10 mg PO QDAY 10/20/22 04/10/23 History rosuvastatin 5 mg tablet 5 mg PO QDAY 10/20/22 04/10/23 History tadalafil 20 mg tablet 20 mg PO QDAY 10/20/22 04/10/23 History Allergies Allergy/AdvReac Type Severity Reaction Status Date / Time No Known Drug Allergies Allergy Verified 12/05/22 08:11 Exam Constitutional Documenting provider has reviewed patient's vital signs: yes Common normals: no apparent distress, oriented x3, healthy appearing, alert and well nourished General appearance: cooperative HENMT Common normals: normocephalic, hearing grossly normal bilaterally and moist oral mucous membranes Head and scalp: normocephalic Eye Common normals: PERRL Pupil: PERRL Neck & C-Spine Common normals: full ROM General: normal visual inspection Chest Common normals: inspection of chest normal Respiratory Common normals: normal respiratory effort, no retractions and no use of accessory muscles Back & Pelvis Lumbar spine/lower back: lumbar ROM normal and straight leg raise negative bilaterally Sacroiliac joints: SI joints normal Other: negative janna, gaenslens, thigh thrust Extremity Common normals: normal to inspection and full ROM Neuro Common normals: oriented x3, CN's II-XII intact bilaterally, moves all extremities, no focal motor deficits, no sensory deficits noted, deep tendon reflexes 2+ bilaterally and gait normal Sensorium/orientation: alert Motor exam: strength 5/5 throughout and no movement abnormalities noted Psych Common normals: mental status grossly normal, thought process normal, cooperative, affect normal, speech normal and activity/motor behavior normal Speech: normal speech Thought process: normal thought process Assessment and Plan Assessment and Plan (1) Lumbar radiculopathy: (2) Lumbar degenerative disc disease: (3) Muscle spasm: (4) Neuritis: Plan lumbar MRI without contrast start gabapentin 100mg daily, increase to BID in 2-3 weeks as tolerated patient is going [facility] to obtain his previous medical records as we have previously requested them and not received them f/u after MRI, can call to discuss effectiveness of gabapentin and for refill
== END 2023-05-31 12:32 | disposition home or self-care (01) ==
PROVIDERS: Visit Provider Nurse Practitioner
DX: M54.16 Radiculopathy, lumbar region (principal); M51.36 Other intervertebral disc degeneration, lumbar region; M62.838 Other muscle spasm; M79.2 Neuralgia and neuritis, unspecified
CPT/HCPCS: G0463